=== PATIENT | male | born 1945 | race Caucasian/White ===

== ENCOUNTER 2020-02-12 10:07 | Emergency (ER) | payer OTHER ==
[~2020-02-12] VITALS: Ht 175.3 cm; Wt 107.5 kg
[2020-02-12] MEDS ORDERED: METF500 PO (10:17)
[2020-02-12] MEDS ORDERED: JARDIANCE10 MG PO (10:19)
[2020-02-12] MEDS ORDERED: Norco 5-325 Ta1 EACH PO (11:04)
== END 2020-02-12 11:49 | disposition home or self-care (01) ==
LOC: ER 10:07
DX: S52.502A Unspecified fracture of the lower end of left radius, initial encounter for closed fracture (principal); S52.612A Displaced fracture of left ulna styloid process, initial encounter for closed fracture; E11.9 Type 2 diabetes mellitus without complications; Z79.84 Long term (current) use of oral hypoglycemic drugs; Z88.2 Allergy status to sulfonamides; W18.30XA Fall on same level, unspecified, initial encounter
CPT/HCPCS: 73090; 99282; J1170; J2405; J3010

== ENCOUNTER 2020-02-13 20:34 | Emergency (ER) | payer OTHER ==
[~2020-02-13] VITALS: Ht 170.2 cm; Wt 108.0 kg
[~2020-02-13 20:34] MED LIST: JARDIANCE10 MG PO; METF500 PO; Norco 5-325 Ta1 EACH PO
== END 2020-02-14 00:27 | disposition home or self-care (01) ==
LOC: ER 20:34
DX: S52.502D Unspecified fracture of the lower end of left radius, subsequent encounter for closed fracture with routine healing (principal); S52.612D Displaced fracture of left ulna styloid process, subsequent encounter for closed fracture with routine healing; E11.9 Type 2 diabetes mellitus without complications; Z88.2 Allergy status to sulfonamides; Z79.84 Long term (current) use of oral hypoglycemic drugs
CPT/HCPCS: 99282-25

== ENCOUNTER 2020-08-01 13:21 | Emergency (ER) | payer OTHER, MEDICARE ==
[~2020-08-01] VITALS: Ht 175.3 cm; Wt 108.9 kg
== END 2020-08-01 16:28 | disposition home or self-care (01) ==
LOC: ER 13:21
DX: S61.012A Laceration without foreign body of left thumb without damage to nail, initial encounter (principal); E11.9 Type 2 diabetes mellitus without complications; Z88.2 Allergy status to sulfonamides; Z79.84 Long term (current) use of oral hypoglycemic drugs; Z88.8 Allergy status to other drugs, medicaments and biological substances; Z79.899 Other long term (current) drug therapy; Z23 Encounter for immunization; W31.2XXA Contact with powered woodworking and forming machines, initial encounter
CPT/HCPCS: 12004; 73140; 90471; 90714; 99283-25

== ENCOUNTER → 2022-10-22 | Outpatient (CLI) | payer OTHER, MEDICARE ==
[2022-10-22 18:44] LABS: Protein, Urine Quantitative 16.9 mg/dL (0.0-11.9)
[2022-10-22 18:46] LABS: Microalbumin, Urine Quant. 9.39 mg/L (0.000-20.000)
== END | disposition home or self-care (01) ==
LOC: LAB SHORT 16:04 → LAB FUT 10-17 09:40
PROVIDERS: Internal Medicine Nephrology
DX: N18.2 Chronic kidney disease, stage 2 (mild) (principal); D63.1 Anemia in chronic kidney disease; N25.81 Secondary hyperparathyroidism of renal origin; E55.9 Vitamin D deficiency, unspecified; E78.00 Pure hypercholesterolemia, unspecified; R76.9 Abnormal immunological finding in serum, unspecified; R94.5 Abnormal results of liver function studies; R94.6 Abnormal results of thyroid function studies
CPT/HCPCS: 81050; 82043; 82570; 84156

== ENCOUNTER 2025-03-24 06:47 | Day surgery (SDC) | payer OTHER ==
[~2025-03-24] VITALS: Ht 175.3 cm; Wt 106.6 kg
[~2025-03-24 06:47] MED LIST changes: +Balanced Salt Epinephrine Irrigation Solution 500 mL IR SCH; +Moxifloxacin HCL 0.5 MG/0.1 ML 0.4MLSYR RIGHTEYE SCH; +Ondansetron 4 MG SoluTab MM PRN; +PHENYLEPHRINE\\TROPICAMIDE\\TETRACAINE OPHTHALMIC DILATING SOLN RIGHTEYE PRN; +Povidone-Iodine 450 DROP/30 ML Solution ONE; +Povidone-Iodine 450 DROP/30 ML Solution RIGHTEYE SCH; +Tetracaine HCl/Pf 0.5% Opth Soln 4 ml ONE; +Triamcinolone Inj Susp 40 MG / ML 1ML Vial INJ SCH; +Triamcinolone Inj Susp 40 MG / ML 1ML Vial ONE
[2025-03-24] MEDS ORDERED: NOVOLOG FL100 UNIT/3 (07:38)
[2025-03-24] MEDS ORDERED: INSULANI (07:38)
[2025-03-24] MEDS ORDERED: ATORVASTATIN CA40 M1 PO (07:39)
[2025-03-24] MEDS ORDERED: ZYRTEC10 M2 PO (07:39)
[2025-03-24] MEDS ORDERED: ALLO100 PO (07:39)
[2025-03-24] MEDS ORDERED: Acerola C500 MG PO (07:40)
[2025-03-24] MEDS ORDERED: JARDIANCE25 MG PO (07:40)
[2025-03-24] MEDS ORDERED: LISI20 PO (07:40)
[2025-03-24] MEDS ORDERED: OZEMPIC1 MG/0.72 SQ (07:40)
[2025-03-24] MEDS ORDERED: B-12500 MC2 PO (07:41)
[2025-03-24] MEDS ORDERED: GABA300 PO (07:41)
--- NOTE | 2025-03-24 07:49 | NUR ---
03/24/25 0749 Mary Laureano UPON ARRIVAL PT RATES ANXIETY 4/10; 10MG VALIUM GIVEN PER DR'S ORDERS AT 0735. PT TOLERATED TETRACAINE EYE DROP AND PLEDGET PLACEMENT WELL. CALL LIGHT IN REACH. WARM BLANKETS PROVIDED. ALL QUESTIONS ANSWERED AT THIS POINT.
[2025-03-24] MEDS ORDERED: Tetracaine HCl 0.5% Opth Soln 15 ml RIGHTEYE ONE (08:27)
--- NOTE | 2025-03-24 08:33 | NUR ---
03/24/25 0833 Fani Hyatt 120/62 96% 10L BLOW BY 02 63 16
[2025-03-24 08:58] VITALS: BP 123/68
== END 2025-03-24 09:09 | disposition home or self-care (01) ==
LOC: ORSCSDS 06:47
PROVIDERS: Ophthalmology
PROC: 08RJ3JZ Replacement of Right Lens with Synthetic Substitute, Percutaneous Approach (ICD-10-PCS; principal; 2025-03-24 08:30)
DX: E11.36 Type 2 diabetes mellitus with diabetic cataract (principal); H25.811 Combined forms of age-related cataract, right eye; H52.201 Unspecified astigmatism, right eye; Z96.1 Presence of intraocular lens; Z87.891 Personal history of nicotine dependence; F43.10 Post-traumatic stress disorder, unspecified; I10 Essential (primary) hypertension; G47.30 Sleep apnea, unspecified; Z79.4 Long term (current) use of insulin; Z79.899 Other long term (current) drug therapy
CPT/HCPCS: A9270; J3301; V2632